=== PATIENT | female | born 1975 | race Hispanic/Latino ===

== ENCOUNTER 2018-11-06 06:02 | Day surgery (SDC) | payer OTHER ==
[~2018-11-06] VITALS: Ht 154.9 cm; Wt 95.6 kg
[2018-11-06] VITALS (7 sets, daily range): BP systolic 139–160; BP diastolic 80–92
[~2018-11-06 06:02] MED LIST: ADV500INH INH; CETI10TA PO; CITA-231 PO; LR 1,000 ML IV ONE; OMEP40CA2 PO; PROAAER10 INH; SING10TA32 PO; WELLTAB40 PO; cefoTEtan DISODIUM 2 GM in D5W MINI-BAG PLUS 50 ML IV ONE
[2018-11-06 06:37] LABS: URINE PREG TEST NEGATIVE (NEGATIVE)
[2018-11-06] MEDS ORDERED: BUPIVACAINE HCL 0.25% 30 ML VIAL As Ordered ONE (07:12)
[2018-11-06] MEDS ORDERED: NEOSTIGMINE 10 MG/10 ML VIAL (J2710) As Ordered ONE (08:07)
[2018-11-06] MEDS ORDERED: PROPOFOL 200 MG/20 ML VIAL As Ordered ONE (08:07)
[2018-11-06] MEDS ORDERED: MIDAZOLAM INJ 2 MG/2 ML VIAL (J2250) As Ordered ONE (08:07)
[2018-11-06] MEDS ORDERED: dexameTHASONE 4 MG/ML 1ML VIAL (J1100) As Ordered ONE (08:07)
[2018-11-06] MEDS ORDERED: LIDOCAINE 2% INJ 100 MG/5 ML SDV (FOR ANES.) As Ordered ONE (08:07)
[2018-11-06] MEDS ORDERED: ROCURONIUM BROMIDE 50 MG/5 ML VIAL As Ordered ONE ×4 (08:07→11:40)
[2018-11-06] MEDS ORDERED: ONDANSETRON 4MG/2ML VIAL (J2405) As Ordered ONE (08:07)
[2018-11-06] MEDS ORDERED: fentaNYL 250 MCG/5 ML INJECTION (J3010) As Ordered ONE (08:07)
[2018-11-06] MEDS ORDERED: METOCLOPRAMIDE INJ 10MG/2ML VIAL (J2765) As Ordered ONE ×2 (08:07→09:12)
[2018-11-06] MEDS ORDERED: GLYCOPYRROLATE INJ 0.2 MG/ML 2 ML VIAL As Ordered ONE (08:07)
[2018-11-06] MEDS ORDERED: HYDROmorphone HCL 2 MG/ML 1ML VIAL (J1170) As Ordered ONE (08:09)
[2018-11-06] MEDS ORDERED: SEVOFLURANE INHAL SOLN 250 ML BTL As Ordered ONE (09:11)
[2018-11-06] MEDS ORDERED: fentaNYL 100 MCG/2 ML INJECTION (J3010) As Ordered ONE (12:23)
[2018-11-06] MEDS ORDERED: KETOROLAC 60 MG/2 ML VIAL (J1885) As Ordered ONE (12:45)
[2018-11-06] MEDS: LR 1,000 ML IV SCH ×2 (13:09→22:29)
[2018-11-06] MEDS ORDERED: MORPHINE 4 MG/ML 1ML VIAL/SYRINGE (J2270) IV PRN (13:15)
[2018-11-06] MEDS ORDERED: ONDANSETRON 4MG/2ML VIAL (J2405) IV PRN ×2 (13:15→13:30)
[2018-11-06] MEDS ORDERED: ALBUTEROL 90 MCG/ACT 8GM HFA INHALER INH PRN (13:15)
[2018-11-06] MEDS ORDERED: PERCOCET 5MG/325MG TAB PO PRN (13:30)
[2018-11-06] MEDS ORDERED: LR 1,000 ML IV SCH (13:30)
[2018-11-06] MEDS ORDERED: METOCLOPRAMIDE INJ 10MG/2ML VIAL (J2765) IV PRN (13:30)
[2018-11-06] MEDS: fentaNYL 100 MCG/2 ML INJECTION (J3010) IV PRN ×4 (13:55→14:18)
[2018-11-06] MEDS ORDERED: MORPHINE 10 MG/ML 1ML VIAL (J2270) IV PRN (15:00)
[2018-11-06] MEDS: PANTOPRAZOLE 40MG INJ (PROTONIX) (C9113) IV SCH (16:12)
[2018-11-06] MEDS: KETOROLAC 30 MG/ML VIAL (J1885) IV PRN (16:59)
[2018-11-06] MEDS ORDERED: ADVAIR HFA 230/21MCG INHALER INH SCH (21:00)
[2018-11-06] MEDS: MORPHINE 4 MG/ML 1ML VIAL/SYRINGE (J2270) IV PRN (22:47)
[2018-11-06] MEDS ORDERED: ENOXAPARIN 40 MG/0.4 ML SYRINGE (J1650) SC SCH (23:00)
[2018-11-07] VITALS (7 sets, daily range): BP systolic 140–158; BP diastolic 82–96
[2018-11-07] MEDS: KETOROLAC 30 MG/ML VIAL (J1885) IV PRN ×2 (02:18→09:02)
[2018-11-07] MEDS: MORPHINE 4 MG/ML 1ML VIAL/SYRINGE (J2270) IV PRN ×3 (06:23→11:58)
[2018-11-07 06:39] LABS: BASO % 0.2 % (0.0-1.0); EOS % 0.2 % (0.0-3.0); HEMATOCRIT 38.8 % (36.0-47.0); HEMOGLOBIN 12.7 g/dl (12.0-15.5); LYMPH # 2.4 10^3/uL (1.5-4.5); LYMPH % 20.7 % (24.0-44.0); MEAN CORPUSCULAR HEMOGLOBIN 26.5 pg (27.0-33.0); MEAN CORPUSCULAR HGB CONC 32.7 g/dl (32.0-36.5); MONO # 1.1 10^3/uL (0.0-0.8); MONO % 9.3 % (0.0-5.0); NEUTROPHILS # 8.2 10^3/uL (1.8-7.7); NEUTROPHILS % 69.3 % (36.0-66.0); PLATELET COUNT, AUTOMATED 310 10^3/uL (150-450); RED BLOOD COUNT 4.79 10^6/uL (4.00-5.40); WHITE BLOOD COUNT 11.8 10^3/uL (4.0-10.0)
[2018-11-07 07:03] LABS: BLOOD UREA NITROGEN 12 MG/DL (7-18); CALCIUM LEVEL 7.8 MG/DL (8.5-10.1); CARBON DIOXIDE LEVEL 28 MEQ/L (21-32); CHLORIDE LEVEL 105 MEQ/L (98-107); CREATININE FOR GFR 0.81 MG/DL (0.55-1.30); GLOMERULAR FILTRATION RATE > 60.0 (>58); GLUCOSE, FASTING 93 MG/DL (70-100); POTASSIUM SERUM 3.5 MEQ/L (3.5-5.1); SODIUM LEVEL 140 MEQ/L (136-145)
[2018-11-07] MEDS: LR 1,000 ML IV SCH (09:02)
[2018-11-07] MEDS: PANTOPRAZOLE 40MG INJ (PROTONIX) (C9113) IV SCH (09:39)
[2018-11-07] MEDS ORDERED: NORCO, ANEXSIA 5/325MG TABLET (HYDROcodone/ACETAMINOPHEN) PO PRN (11:00)
[2018-11-07] MEDS ORDERED: NORCOTAB PO (16:58)
--- NOTE | 2018-11-09 15:12 | RO ---
DATE OF PROCEDURE: 11/06/2018 PREOPERATIVE DIAGNOSIS: Gastroesophageal reflux. POSTOPERATIVE DIAGNOSIS: Gastroesophageal reflux. PROCEDURE PERFORMED: Laparoscopic Odette fundoplication. SURGEON: Dr. Oliveira ROLL FORMING SUPERVISOR: Ailyn Moraes NP ANESTHESIA: General. INDICATIONS FOR THE PROCEDURE: The patient is a 42-year-old woman with a history of gastroesophageal reflux. She had some retrosternal burning but this has been largely controlled by proton pump inhibitors. She still, however, complains of regurgitation of food, particularly at night. She has undergone an esophageal manometry that reveals changes consistent with reflux. She is now for a laparoscopic Odette fundoplication. OPERATIVE PROCEDURE: The patient was brought to the operating room and placed supine on the operating table. The patient was placed under general endotracheal anesthesia. A Claire catheter was inserted. A nasogastric tube was inserted. The patient's right arm was tucked. The patient's abdomen was prepped and draped in a sterile fashion. Thromboembolism deterrents (TEDs) and sequential were utilized. The initial plan was to perform the Odette fundoplication using the da Frieda robotic system. Therefore, the table was positioned for better access with the patient's cart. The initial incision was in the left upper quadrant approximately 2 cm to the left of the midline and 2-3 cm above the level of the umbilicus. Local anesthesia was achieved with 1% Xylocaine and a Veress needle was inserted. After a positive hanging drop test, we attempted insufflation but the pressures were high. Therefore, the Veress needle was removed and reinserted and this time there was low-pressure on insufflation and the abdomen was appropriately insufflated. A 12 mm trocar was placed over a 5 mm scope and this was advanced through the abdominal wall without difficulty. Initial examination showed no evidence of Veress needle injury. There were no adhesions identified within the abdomen. There was abundant omental fat within the midportion of the abdomen extending up into the upper abdomen. The liver was seen and appeared normal. The gallbladder was also seen and appeared normal. The anterior surface of the stomach was noted. An 8 mm trocar was placed approximately 10 cm to the left and slightly above the camera port. A second 8 mm port was placed lateral in the left upper quadrant. The patient was tilted to a moderate reverse Trendelenburg position. Another 8 mm port was placed in the right upper quadrant about at the midclavicular line slightly above the level of the camera port. A 5 mm port was placed far laterally in the right upper quadrant. A 5 mm flexible liver retractor was inserted through this port to elevate the left lobe of the liver and once the liver was elevated this was connected to the arm fixed to the post of the Bookwalter retractor. A final 8 mm robotic port was placed in the right midabdomen to be used as an aquatics assistant department head port. The patient's cart was brought in over the head and the camera port was docked followed by the two robotic arms on the ports in the left side of the abdomen and one on the right side of the abdomen. I then moved to the control console. A bipolar grasper was utilized for the left hand and the grasping retractor and the vessel sealer were used in the right hand. A 30 degree down viewing camera was utilized. Attention was turned to initially the greater curve of the stomach. The omentum was pulled inferiorly somewhat and the greater curve of the stomach was identified. The edge of the stomach was elevated with the grasper and the attached fatty tissue was elevated and the vessel sealer was used to open the tissues into the lesser sac. Then working up along the greater curve of the stomach, the vessels were divided securely using the vessel sealer. Dissection proceeded up along the greater curve. There appeared to be some crowding of the instrumentation in the patient's abdomen. The patient was of relatively short stature but obese and this created some difficulties with abundant fatty tissue also in the left upper quadrant. Some attention was paid to the lesser omentum along the lesser curve and this area was opened through the avascular portion and then dissection proceeded up along the lesser curve of the stomach as well. The area of the right diaphragmatic valerie was identified. A plane was developed between the esophagus and the right valerie. Dissection with the vessel sealer was difficult given the bulkiness. I continued the dissection for approximately 40-50 minutes and then elected to discontinue use of the da Frieda robotic system in favor of converting to straight laparoscopic surgery. This would allow us to reposition the patient and also to be a little more adaptable in use of instruments. Therefore, the robot was undocked and withdrawn. The patient was repositioned with the lower extremities placed into padded leg holders and she was moved into a low lithotomy position. A steeper reverse Trendelenburg position was accomplished. We then proceeded with a laparoscopic approach. The liver retractor was retained through the far lateral right upper quadrant port. The lateral port in the left side of the abdomen was utilized for a grasper managed by the aquatics assistant department head, who also managed the camera. Using the Harmonic scalpel, the dissection was then carried up along the greater curve of the stomach. It had been impossible to get all the way up to the diaphragmatic hiatus using the robotic system, but with greater traction using the aquatics assistant department head grasper and the greater incline of the table it was possible to continue working up along the greater curve of the stomach. At the medial tip of the spleen, the attachments of the fundus of the stomach to the spleen were quite short and billings, and I do not doubt that we would been unable to divide these using the vessel sealer had we been able to expose this area. As it was these tissues were divided using the Harmonic scalpel moving close to the stomach. It was possible to completely free the fundus of the stomach and to rotate this to the right to divide tissues overlying the left valerie of the diaphragm. The tissues anteriorly around the opening of the diaphragmatic hiatus were opened and the esophagus was freed anteriorly up into the mediastinum. Dissection was turned to the lesser curve of the stomach and the separation of the esophageal wall from the right valerie of the diaphragm was better defined and tissues were opened posterior to the esophagus to expose both the right and left valerie of the diaphragm and provide an opening for passage of the fundus for the fundoplication. The crura were approximated with two interrupted simple sutures of #2-0 silk. The diaphragmatic hiatus did not appear to be significantly dilated and I elected not to place additional crural sutures. The fundus of the stomach was inspected and in the area where the fundus had been freed from the spleen there appeared to be a seromuscular defect, so there was no evidence of perforation into the mucosa. This area was imbricated beneath two simple sutures of #3-0 Vicryl. The fundus was passed posterior to the esophagus. At this point, the nasogastric (NG) tube was removed and a 36-[place] bougie was placed by anesthesia. There appeared to be excellent mobilization of the stomach to allow for a fundoplication. The fundoplication was performed with four sutures of #2-0 silk taking a bite of the fundus on the left and the fundus on the right. The initial suture was placed at the superior aspect of the fundoplication. This suture took a bite of the esophageal muscle as well. The second and third sutures were between the fundus only and the fourth suture also took a small bite of the esophageal muscle. This appeared to give a nice secure wrap that was not too tightly applied. The bougie was then removed by anesthesia and a nasogastric tube was reinserted carefully. The wrap appeared to be secure but loose. The operative areas and the spleen were inspected for hemostasis and this appeared to be excellent. The patient was returned to a flat position. The liver retractor was removed. An Endo Close device was used to place a #1 Vicryl suture to close the inner fascia that is the posterior rectus sheath at the 12 mm port that had been used as the camera port. The remaining ports were used to deflate the abdomen and these were then all removed. The skin incisions were all closed with buried #4-0 or #5-0 Vicryl and Steri-Strips. Light dressings were applied. The patient was then awakened in the operating room, extubated and moved to the recovery room in stable condition. I would note that Ailyn Moraes's assistance was absolutely required for the management of five trocar sites that had active instruments or the camera in place.
--- NOTE | 2018-11-09 17:00 | IPN ---
DATE: 11/07/2018 HISTORY: The patient is now postoperative day #1 from a laparoscopic Odette fundoplication for gastroesophageal reflux with persistent regurgitation despite proton pump inhibitors. Her surgery was begun with robotic assistance but was converted to a straight laparoscopic procedure. The surgery was approximately 4-1/2 hours but was otherwise without any complication. She had a nasogastric tube left in place overnight, and this was removed early this morning. She was started on some clear liquids, which she has tolerated without any apparent dysphagia. She reports that she has been able to belch. Vital signs show that she has been afebrile since surgery. Her pulse is in the 80s generally. Blood pressure is good, and her oximetry is also good. Intake and output show that yesterday she had 2500 mL in with 400 mL reported out. She has had several voids today that were not measured. She has been taking clear liquids well, over a liter by now. Physical exam shows that she is lying quietly in bed without any obvious discomfort. Heart exam shows a regular rate and rhythm. The lungs are clear. The abdomen is obese. She has bowel sounds present. The abdomen is soft. There is some expected incisional tenderness across the upper abdomen. Her dressings are dry and clean. Laboratory studies this morning include a CBC, showing a white count of 12,000 with a hemoglobin of 13, hematocrit of 39, and a platelet count of 310,000. Differential count shows 69% neutrophils, 21% lymphocytes, and 9% monocytes. Chemistry profile shows normal electrolytes with a BUN of 12, creatinine 0.8, and a glucose of 93. IMPRESSION: Patient has been doing quite well. She did require several doses of morphine since surgery but tolerated a Pelican tablet earlier this afternoon. She has had no nausea or vomiting and is taking liquids well. PLAN: The patient appears ready for discharge, and she will be discharged home today. She was counseled regarding pain management. I have recommended that she can take ibuprofen 400 or 600 mg up to four times daily for pain over the next few days and should then wean this off as she feels better. She will be provided a prescription for Pelican 5/325 tablets, to take one every 4 hours as needed for pain, and she will be provided a prescription for 20 pills. This will be sent electronically to her pharmacy. She was advised to take a liquid diet or very soft diet for about the next 5 days, and she can then advance her diet as tolerated. She should contact our office immediately or return to the emergency department for significant worsening of her abdominal pain or any fevers or chills. I will plan on seeing her back in the office in 7-10 days. She was counseled regarding her return to work, and I advised her to remain off work for at least the first week. She can shower as desired starting tomorrow and should leave the Steri-Strips in place until they come off on their own.
== END 2018-11-07 18:45 | disposition home or self-care (01) ==
LOC: M SDC 06:02 → EDSTATUS 07:30 → M MS5PR 14:55 → M SDC 11-07 18:45
PROVIDERS: ATTEND Surgery
DX: K21.9 Gastro-esophageal reflux disease without esophagitis (principal); J45.909 Unspecified asthma, uncomplicated; F41.9 Anxiety disorder, unspecified; F32.9 Major depressive disorder, single episode, unspecified; K44.9 Diaphragmatic hernia without obstruction or gangrene; G43.909 Migraine, unspecified, not intractable, without status migrainosus; Z79.899 Other long term (current) drug therapy; Z68.36 Body mass index [BMI] 36.0-36.9, adult
CPT/HCPCS: 36415; 43280; 80048; 84703; 85025; 94640; C9113; J1100; J1170; J1650; J1885; J2250; J2270; J2405; J2710; J2765; J3010